=== PATIENT | male | born 1935 | race Caucasian/White ===

== ENCOUNTER 2017-01-31 11:49 | Emergency (ER) | payer MEDICARE, OTHER ==
[~2017-01-31] VITALS: Ht 180.3 cm; Wt 80.2 kg
[2017-01-31] MEDS ORDERED: SODIUM CHLORIDE 0.9% 1,000 ML IV ONE (13:33)
[2017-01-31] MEDS ORDERED: ONDANSETRON 2MG/ML, 2ML IVPush ONE (14:00)
[2017-01-31] MEDS ORDERED: MECLIZINE CHEWABLE 25 MG TAB PO ONE (14:00)
[2017-01-31] MEDS ORDERED: MECLIZINE CHEWABLE 25 MG TAB ONE (14:05)
[2017-01-31] MEDS ORDERED: ONDANSETRON 2MG/ML, 2ML ONE (14:05)
[2017-01-31 14:31] LABS: ASPARTATE AMINO TRANSFERASE 38 U/L (15-37); BLOOD UREA NITROGEN 25 mg/dL (7-18)
[2017-01-31 14:46] LABS: IS PT STATUS REG ER OR PRE ER? YES
[2017-01-31 16:01] VITALS: BP 165/68
== END 2017-01-31 16:09 | disposition home or self-care (01) ==
LOC: ED 14:32
DX: H81.11 Benign paroxysmal vertigo, right ear (principal); I11.0 Hypertensive heart disease with heart failure; E78.5 Hyperlipidemia, unspecified; E11.9 Type 2 diabetes mellitus without complications; I48.91 Unspecified atrial fibrillation; Z96.89 Presence of other specified functional implants; Z90.49 Acquired absence of other specified parts of digestive tract; Z79.84 Long term (current) use of oral hypoglycemic drugs; Z87.891 Personal history of nicotine dependence
CPT/HCPCS: 36415; 70450; 71010; 80053; 83880; 84484; 85025; 85610; 93005; 96361; 96374; 99285; J2405; J7030